=== PATIENT | female | born 1970 | race Caucasian/White ===

== ENCOUNTER 2024-12-09 20:12 | Emergency (ER) | payer OTHER, SELFPAY ==
[2024-12-09 20:14] VITALS: BMI 26.3
--- NOTE | 2024-12-09 20:27 | EDNOTE_ITS ---
Lower Extremity Injury RME/HPI General Chief Complaint: Extremity Injury, Lower Stated Complaint: LT KNEE PAIN- WORK COMP Time Seen by Provider: 12/09/24 20:24 Source: patient, RN notes reviewed and old records reviewed Arrival date/time: 12/09/24 20:12 Mode of arrival: ambulatory Limitations: no limitations RME / HPI RME / HPI Narrative: 54yof presents to ED for knee pain s/p injury at work today. Patient reports she slipped on a mat and hit left knee against a bed rail, reports pain and swelling. No deformity reported. Patient took routine vicodin at 1800 with some relief. Of note, evan is scheduled for left meniscus repair next month. Related Data Home Medications ?Medication ?Instructions ?Recorded ?Confirmed adalimumab 40 mg/0.8 mL 40 mg subcut Q14D 07/03/17 0 07/03/17 subcutaneous syringe kit (Humira) hydrocodone 7.5 mg-acetaminophen 1 tab PO Q6H PRN Pain 07/03/17 07/03/17 325 mg tablet ([place]) Previous Rx's ?Medication ?Instructions ?Recorded hydrocodone 5 mg-acetaminophen 325 1 tab PO TID PRN pa in #20 tabs 01/10/22 mg tablet naproxen 500 mg tablet (Naprosyn) 500 mg PO BID #30 ta bs 01/10/22 Allergies Allergy/AdvReac Type Severity Reaction Status Date / Time Sulfa (Sulfonamide Allergy Mild Verified 08/10/16 22:09 Antibiotics) Review of Systems Review of Systems Systems Reviewed: All systems reviewed, normal except as documented Musculoskeletal Musculoskeletal: Reports arthralgias, Denies deformity, Reports joint swelling, Reports limited range of motion, Denies numbness and Denies tingling Neurologic Neurologic: Denies numbness and Denies tingling Past Medical History Past Medical History MUSCULOSKELETAL: Positive Arthritis (psoriatic) OTHER HISTORY: Positive Autoimmune Disease (psoriasis) Surgical History OTHER SURGICAL HX: L knee Social History SMOKING STATUS: Never smoker SUBSTANCE USE: does not use ALCOHOL: Never ED Exam General Limitations: Present no limitations General appearance: Present alert and in no apparent distress Head Head exam: Present atraumatic and normocephalic Eye Eye exam: Present normal appearance, PERRL and EOMI ENT ENT exam: Present normal exam and mucous membranes moist Neck Neck exam: Present normal inspection and full ROM Chest Chest inspection: Present normal inspection and symmetric chest wall rise Respiratory Respiratory exam: Present normal lung sounds bilaterally; Absent respiratory distress Cardiovascular Cardiovascular exam: Present regular rate and normal rhythm Extremities Exam Extremities exam: Present other (Mild tenderness/swelling to left anterior knee. Limited ROM 2/2 pain. DP pulses and sensation intact BLE) Neurological Exam Neurological exam: Present alert and oriented X3 Psychiatric Psychiatric exam: Present normal affect and normal mood Skin Skin exam: Present warm, dry, intact and normal color Course Quality Measures none Orders Category Date Time Status XR knee LT 3V Stat Exams 12/09/24 20:27 Completed Vital Signs Vital signs: Vital Signs Temperature 98.3 F 12/09/24 20:34 Pulse Rate 90 12/09/24 20:34 Respiratory Rate 18 12/09/24 20:34 Blood Pressure 149/92 H 12/09/24 20:34 Pulse Oximetry (%) 96 12/09/24 20:34 Oxygen Delivery Method Room Air 12/09/24 20:34 Extremity Injury, Lower MDM Narrative MDM Narrative:: 54yof presents to ED for knee pain s/p injury at work today. Patient reports she slipped on a mat and hit left knee against a bed rail, reports pain and swelling. No deformity reported. Patient took routine vicodin at 1800 with some relief. Of note, paient is scheduled for left meniscus repair next month. Patient is neurovascularly intact, compartment soft. X-ray pending at time of discharge ? tech shot xrays under wrong patient and has been unable to move images to correct [facility]. Patient is ready to go home and states she will check imaging tomorrow. Encouraged RICE therapy, pain management prn. Patient states she has Leonidas wrap, knee immobilizer and crutches already at home. Stable for discharge, RTED precautions given. Patient data External records reviewed:: [facility] previous records (01/10/22 ED visit for knee sprain) Clinical information provided by:: patient Social determinants that could affect healthcare access:: none Patient has the following chronic illnesses:: psoriatic arthritis, psoriasis How is presenting disease/condition affected by chronic disease/condition?: uneffected by Evaluation data The following diagnostics were reviewed and interpreted by me:: radiology exam(s) Lab and/or radiology exams considered but not ordered:: none Interpretation Summary: knee xrays: no fracture per my read Medications / Prescriptions Medications or Prescriptions considered but not ordered:: none Medication administrations:: none Consultations Consultation(s) initiated? (list below): No Diagnosis Extremity Injury, Lower Differential Diagnosis: other (Fracture, dislocation, sprain, strain, contusion, MSK pain) Most likely diagnosis given after review of the tests above:: Knee contusion Admission Indicated Admission indicated?: not indicated Admission Request Was there a request for admission?: No Disposition Plan Disposition Plan: Discharge Discharge Attestation Discharge Attestation: The patient and all family members were given an opportunity to ask questions and understood the discharge instructions. Discharge instructions specifically effects, indications for sooner follow up or return to the emergency department, and the expected course of current diagnosis. Patient condition: Stable Discharge Plan Plan Patient Disposition: HOME (Self Care) Patient condition on transfer: Stable Prescriptions/Referrals Prescriptions/Med Rec: No Action hydrocodone-acetaminophen [[place]] 7.5-325 mg Tablet 1 tab PO Q6H PRN (Reason: Pain) adalimumab [Humira] 40 mg/0.8 mL Syringe Kit 40 mg SUB-Q Q14D hydrocodone-acetaminophen 5-325 mg tablet 1 tab PO TID MDD 3 PRN (Reason: pain) Qty: 20 0RF naproxen [Naprosyn] 500 mg tablet 500 mg PO BID Qty: 30 0RF Referrals: Lul Acosta MD [Primary Care Provider] - In 1 week Problem List Clinical Impression: Contusion of left knee Patient/Caregiver Discharge Instructions Education Materials: ED Contusion, Lower Extremity Print Language: [place] Stand Alone Forms: Didi Award Info., Work/School Release, Patient Portal Info Letter JOSE/TIAGO Supervising Physician JOSE/TIAGO Supervising Physician: Sarah
--- NOTE | 2024-12-09 20:27 | XR_ITS ---
Examination: Knee, left, 3 views Technique: Knee AP, lateral, oblique 3 views Date and time of exam: December 09, 2024, 0828 hours INDICATIONS: Patient fell at work today with injury to the knee, knee pain. FINDINGS: Mild to moderate tricompartment osteoarthritis. No fracture Mild to moderate knee effusion IMPRESSION: No fracture. Mild to moderate knee effusion
[2024-12-09 20:34] VITALS: BP 149/92; PULSE 90; RESP 18; TEMP 36.8; O2SAT 96
== END 2024-12-09 22:32 | disposition home or self-care (01) ==
PROVIDERS: Emergency Provider Emergency Medicine; PCP Family Medicine
DX: S80.02XA Contusion of left knee, initial encounter (principal); W22.8XXA Striking against or struck by other objects, initial encounter; Y92.230 Patient room in hospital as the place of occurrence of the external cause; Y99.0 Civilian activity done for income or pay
CPT/HCPCS: 73562; 99283